=== PATIENT | female | born 2000 | race Caucasian/White ===

== ENCOUNTER 2020-12-13 22:48 | Emergency (ER) | payer SELFPAY ==
[~2020-12-13] VITALS: Ht 165.1 cm; Wt 75.2 kg
[2020-12-13 23:03] VITALS: BP 139/94
--- NOTE | 2020-12-13 23:48 | PHYS DOC ---
Past History Past Medical History: No Pertinent History Past Surgical History: No Surgical History Alcohol Use: Occasionally Adult General Chief Complaint Chief Complaint: BACK PAIN - NO INJURY HPI HPI Patient is a 20-year-old female who presents with low back pain. 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 States that a couple weeks ago she noticed after day or 2 she began to have some right-sided low back pain dull and achy in nature with some radiation down her right leg. States that certain activities/bending or jumping do seem to exacerbate it and resting, in certain positions alleviates the pain. States she has not tried anything for the pain other than some Tylenol. Denies any recent traumas, illnesses, fevers, chest pain, shortness of breath, abdominal pain, nausea, vomiting, dysuria, hematuria or blood in the stool. States she does seem to be urinating more frequently than usual but does not seem to have any other symptoms of UTI. She is able to ambulate without issue. Review of Systems Review of Systems Review of systems otherwise unremarkable except noted in HPI Current Medications Current Medications Current Medications Medications (Trade) Dose Ordered Sig/Kael Start Time Stop Time Status Last Admin Dose Admin Acetaminophen (Tylenol) 1,000 mg 1X ONCE 12/13/20 23:45 12/13/20 23:46 UNV Ibuprofen (Motrin) 800 mg 1X ONCE 12/13/20 23:45 12/13/20 23:46 UNV Allergies Allergies Allergies Coded Allergies Type Severity Reaction Last Updated Verified No Known Drug Allergies 12/13/20 No Physical Exam Physical Exam Constitutional: Well developed, well nourished, no acute distress, non-toxic appearance. [] HENT: Normocephalic, atraumatic, bilateral external ears normal, oropharynx moist, no oral exudates, nose normal. [] Eyes: conjunctiva normal, no discharge. [] Neck: Normal range of motion, no tenderness, Cardiovascular:Heart rate regular rhythm, no murmur [] Lungs & Thorax: Bilateral breath sounds clear to auscultation [] Abdomen: soft, no tenderness, no masses, no pulsatile masses. [] Skin: Warm, dry, no erythema, no rash. [] Back: Tenderness on lower right paraspinal muscle and upper right gluteal, no CVA tenderness. [] Extremities: No tenderness, ROM intact, no edema. [] Neurologic: Alert and oriented X 3, normal motor function, normal sensory function, no focal deficits noted. [] Psychologic: Affect normal, judgement normal, mood normal. [] Current Patient Data Vital Signs Vital Signs Date Time Temp Pulse Resp B/P (MAP) Pulse Ox O2 Delivery O2 Flow Rate FiO2 12/13/20 23:03 98.9 78 18 139/94 (109) 95 Room Air EKG EKG [] Radiology/Procedures Radiology/Procedures [] Heart Score C/O Chest Pain: No Risk Factors: Risk Factors: DM, Current or recent (<one month) smoker, HTN, HLP, family history of CAD, obesity. Risk Scores: Risk Factors: DM, Current or recent (<one month) smoker, HTN, HLP, family history of CAD, obesity. Course & Med Decision Making Course & Med Decision Making Patient is a 20-year-old female presents with low back pain for 2 weeks [] Vital signs not concerning. Physical exam noted above. Given Tylenol and ibuprofen. Given ice pack. Urine negative. Urinalysis not concerning. Patient felt medications did help with pain. Discussed pain management at home and what to expect if muscle strain/sprain or pinched nerve/radiculopathy and given education. Advised no strenuous activity over the next couple of weeks. Advised to call primary care physician first thing in the morning to discuss ED visit and set up a follow-up. Gave return precautions to the ED. Gave note for work for the next couple of days. Patient grateful, verbalized understanding and agreed with plan of disch arge. Brian Disclaimer Brian Disclaimer This electronic medical record was generated, in whole or in part, using a voice recognition dictation system. Departure Departure: Impression: Primary Impression: Low back pain Disposition: 01 DC HOME SELF CARE/HOMELESS Condition: GOOD Referrals: PCP,NO (PCP) Patient Instructions: Back Pain, Adult Additional Instructions: Please read all of the attached information. Please begin a Tylenol, ibuprofen and ice regimen as discussed. As discussed, please refrain from any strenuous exercise or activity over the next couple of weeks. You are given a work note as requested. Please call your primary care physician first thing in the morning to discuss your ED visit and set up a follow-up as soon as possible. Please come back to the ED with new or concerning symptoms. Scripts Diazepam (DIAZEPAM) 5 Mg Tablet 5 MG PO BID for back spasm for 7 Days, #14 TAB Prov: HELENA PACKER MD 12/14/20 HELENA PACKER MD Dec 13, 2020 23:48
[2020-12-14] MEDS ORDERED: IBUPROFEN 800 MG TABLET. PO ONE
[2020-12-14] MEDS ORDERED: ACETAMINOPHEN 500 MG TABLET PO ONE
[2020-12-14 00:13] LABS: BACTERIA,URINE 0 /HPF (0-FEW); BILIRUBIN,URINE NEG (NEG); CLARITY,URINE CLEAR; COLOR,URINE COLORLESS; GLUCOSE,URINE NEG (NEG); NITRITE,URINE NEG (NEG); RBC,URINE 0 /HPF (0-2); SQUAMOUS EPITHELIAL CELL,UR OCC /LPF; UROBILINOGEN,URINE 0.2 mg/dL (0.2 mg/dL); WBC,URINE 0 /HPF (0-4)
[2020-12-14] MEDS ORDERED: DIAZ5TAB4 PO (00:20)
== END 2020-12-14 00:30 | disposition home or self-care (01) ==
LOC: ER 22:48
DX: M54.5 Low back pain (principal)
CPT/HCPCS: 81001; 81025; 99283